=== PATIENT | female | born 1940 | race Caucasian/White ===

== ENCOUNTER 2021-10-22 17:29 | Outpatient (CLI) | payer MEDICARE, OTHER, SELFPAY ==
[2021-10-22 17:57] VITALS: BP 112/55; PULSE 82; RESP 20; TEMP 37.4; O2SAT 93; BMI 27.6
[2021-10-22] MEDS: 0.9% Saline Lock 10 ML Syringe IV (18:10)
[2021-10-22 18:40] VITALS: BP 111/58; PULSE 82; RESP 18; TEMP 37.6; O2SAT 95
[2021-10-22 19:33] VITALS: BP 106/53; PULSE 82; RESP 16; TEMP 37.3; O2SAT 95
== END 2021-10-22 23:59 | disposition home or self-care (01) ==
LOC: MS3OUT 17:29 → MS3 17:30
PROVIDERS: Referring Provider Nurse Practitioner Adult Health; Visit Provider Nurse Practitioner Adult Health
DX: Z23 Encounter for immunization (principal); U07.1 COVID-19
CPT/HCPCS: J7050; M0245; Q0245; A4216